=== PATIENT | female | born 1930 | race Caucasian/White ===

== ENCOUNTER → 2018-04-15 | Outpatient (CLI) | payer OTHER ==
[~2018-04-15] MED LIST: ACET-1311 PO; ASPI-232 PO; CALC500C70 PO; CLB/200 PO; FSMD/70 PO; ISOS30TA35 PO; LOSA100T65 PO; METO25TA56 PO; MULT-506 PO; NTRGSL/4 UT; OCCUVITE PO; OMEG10007 PO; PRED1SUS3 OPR; PREMARIN VAG PV; PRLSR20 PO; SACC250C11 PO; SIMV20TA2 PO; TMPOPS15 OPR
[2018-04-15 10:22] LABS: HEMATOCRIT 32.7 % (37-47); HEMOGLOBIN 11.1 g/dL (12.0-16.0); MEAN CELL VOLUME 91.6 fL (80-100); MEAN CORPUSCULAR HEMOGLOBIN 31.1 pg (25-34); MEAN CORPUSCULAR HGB CONC 33.9 g/dl (32-36); MEAN PLATELET VOLUME 9.4 fL (7.4-10.4); PLATELET COUNT 243 K/uL (130-400); RED CELL DISTRIBUTION WIDTH CV 11.7 % (11.5-14.5); WHITE BLOOD COUNT 5.44 K/uL (4.8-10.8)
[2018-04-15 10:31] LABS: ALBUMIN 3.6 gm/dl (3.4-5.0); BLOOD UREA NITROGEN 18 mg/dl (7-18); CALCIUM 8.6 mg/dl (8.5-10.1); CARBON DIOXIDE 27 mmol/L (21-32); CREATININE 0.93 mg/dl (0.60-1.20); GLUCOSE 91 mg/dl (70-99); POTASSIUM 4.8 mmol/L (3.5-5.1); SODIUM 131 mmol/L (136-145)
[2018-04-15 10:35] LABS: PTT PATIENT 22.1 SECONDS (21.0-31.0)
--- NOTE | 2018-04-15 10:41 | DIAGNOSTIC IMAGING REPORT ---
CHEST 2 VIEWS ROUTINE HISTORY: 87 years-old Female PAT preoperative exam. No acute chest complaints COMPARISON: None available TECHNIQUE: PA and lateral views of the chest FINDINGS: Cardiomediastinal and hilar silhouettes are within normal limits. Calcification of the aorta. Linear subsegmental right perihilar opacity extending to the lateral pleural surface suggests atelectasis/scarring. There is no pneumothorax, pleural effusion or overt pulmonary edema. Degenerative changes of the shoulders and spine. IMPRESSION: No acute process. The above report was generated using voice recognition software. It may contain grammatical, syntax or spelling errors. Electronically signed by: Compa Braun M.D. 04/15/2018 10:40 AM Dictated Date/Time: 04/15/2018 10:38 AM
[2018-04-15 10:46] LABS: HEMOGLOBIN A1C 5.9 % (4.5-5.6)
[2018-04-15 11:23] LABS: BASO % 0.6 %; BASO ABS # 0.03 K/uL (0-0.2); EOS % 2.8 %; EOS ABS # 0.15 K/uL (0-0.5); IG# 0.04 K/uL (0.00-0.02); LYMPH % 51.7 %; LYMPH ABS # 2.81 K/uL (1.2-3.4); MONO % 8.6 %; MONO ABS # 0.47 K/uL (0.11-0.59); NEUT % 35.6 %; NEUT ABS # 1.94 K/uL (1.4-6.5)
== END | disposition home or self-care (01) ==
LOC: C.CPL 09:28
DX: Z01.810 Encounter for preprocedural cardiovascular examination (principal); Z01.811 Encounter for preprocedural respiratory examination; Z01.812 Encounter for preprocedural laboratory examination; R00.1 Bradycardia, unspecified

== ENCOUNTER 2018-04-26 06:11 | Inpatient (IN) | payer OTHER ==
[2018-04-12 10:51] VITALS: BMI 29.0
--- NOTE | 2018-04-15 10:16 | PAT Medication Instructions ---
Service Date Apr 15, 2018. Current Home Medication List Acetaminophen (Tylenol), 650 MG PO Q4 PRN for Pain Alendronate/Cholecalciferol (Fosamax+D 70MG/2800 Iu), 1 TABLET PO WK Aspirin (Aspir-81), 1 TAB PO QAM Calcium/Vitamin D (Os-Juan 500 Plus D), 1 TAB PO QAM Celecoxib (CeleBREX), 200 MG PO QAM Fish Oil (Upperco-3), 1 CAP PO BID Isosorbide Mononitrate Ext Rel (Imdur Ext Rel), 1 TAB PO QAM Losartan Potassium (Cozaar), 100 MG PO QAM Metoprolol Tartrate (Lopressor) (Lopressor), 25 MG PO BID Multivitamin (Multivitamin), 1 TAB PO QAM Nitroglycerin (Nitrostat), 0.4 MG UT PRN PRN for PRN Omeprazole (Prilosec), 20 MG PO QAM Prednisolone Acetate (Ophth) (Pred Forte 1% Oph), 1 DROPS OPR UD Saccharomyces Boulardii (Probiotic), 1 CAP PO QAM Simvastatin (Zocor), 20 MG PO QAM Timolol Maleate (Timolol 0.5% Oph Soln 15 Ml), 1 DROP OPR UD [Occuvite], 1 TAB PO QAM [Premarin Vag], 1 DOSE PV Q2WK Medication Instructions For Your Scheduled Surgery -Continue as directed: Alendronate/Cholecalciferol (Fosamax+D 70MG/2800 Iu), 1 TABLET PO WK Nitroglycerin (Nitrostat), 0.4 MG UT PRN PRN for PRN - Hold the following medications STARTING TODAY: Fish Oil (Upperco-3), 1 CAP PO BID [Occuvite], 1 TAB PO QAM - Hold the following medications 24 hours prior to surgery: [Premarin Vag], 1 DOSE PV Q2WK - Hold the following medications the morning of surgery: Calcium/Vitamin D (Os-Juan 500 Plus D), 1 TAB PO QAM Celecoxib (CeleBREX), 200 MG PO QAM Losartan Potassium (Cozaar), 100 MG PO QAM Multivitamin (Multivitamin), 1 TAB PO QAM Saccharomyces Boulardii (Probiotic), 1 CAP PO QAM - Take the following medications the morning of surgery with a sip of water: Acetaminophen (Tylenol), 650 MG PO Q4 PRN for Pain (if needed, may be taken up to four hours before surgery) Aspirin (Aspir-81), 1 TAB PO QAM Isosorbide Mononitrate Ext Rel (Imdur Ext Rel), 1 TAB PO QAM Metoprolol Tartrate (Lopressor) (Lopressor), 25 MG PO BID Omeprazole (Prilosec), 20 MG PO QAM Prednisolone Acetate (Ophth) (Pred Forte 1% Oph), 1 DROPS OPR UD (bring with you to the hospital) Simvastatin (Zocor), 20 MG PO QAM Timolol Maleate (Timolol 0.5% Oph Soln 15 Ml), 1 DROP OPR UD (bring with you to the hospital) - Take the following medications as scheduled the afternoon/night before surgery : Acetaminophen (Tylenol), 650 MG PO Q4 PRN for Pain (if needed) Metoprolol Tartrate (Lopressor) (Lopressor), 25 MG PO BID Prednisolone Acetate (Ophth) (Pred Forte 1% Oph), 1 DROPS OPR UD If you have any questions please call us at [phone] or [phone] or [phone]
[~2018-04-26] VITALS: Ht 154.9 cm; Wt 72.0 kg
[2018-04-26] VITALS (11 sets, daily range): BP systolic 114–164; BP diastolic 63–79; PULSE 57–74; TEMP 36.4–36.6; O2SAT 98–100; Ht 154.9 cm; Wt 72.0 kg
[~2018-04-26 06:11] MED LIST changes: +ACETAMINOPHEN 500 MG TAB PO SCH; +CEFAZOLIN 1000MG IV PUSH 7.5 ML IV SCH; +CeleBREX 200 MG CAP PO SCH; +DEXAMETHASONE 4 MG TAB PO SCH; +FAMOTIDINE 20 MG TAB PO SCH; +GABAPENTIN 300 MG CAP PO SCH; +LACTATED RINGER'S 1000ML 1,000 ML IV SCH; +LACTATED RINGER'S 1000ML 500 ML IV SCH; +METOCLOPRAMIDE HCL 10 MG TAB PO SCH; +ROPIVACAINE 5MG/ML 30 ML 150 MG, BUPIVACAINE 0.5% MPF INJ 30 ML, EpINEphrine HCL INJ 0.... INFIL SCH; +TRANEXAMIC ACID INJ 1,000 MG x 1 Bag Intra-Op IV SCH
[2018-04-26] MEDS: TRANEXAMIC ACID INJ 1,000 MG x 2 Bags IV SCH ×4 (06:30→08:33)
[2018-04-26] MEDS ORDERED: ROPIVACAINE 0.5% 5 MG/ML 30 ML VIAL ONE (07:25)
[2018-04-26] MEDS ORDERED: BUPIVACAINE 0.5 % 5 MG/1 ML PF 10ML VIAL ONE (07:25)
[2018-04-26] MEDS ORDERED: MIDAZOLAM HCL 1 MG/ML 2ML VIAL ONE (07:42)
[2018-04-26] MEDS ORDERED: FENTANYL CITRATE INJ 50 MCG/1 ML 2 ML VIAL ONE (07:43)
--- NOTE | 2018-04-26 07:44 | History & Physical Bridge Note ---
H&P Re-Evaluation Bridge Note: I have examined the patient, reviewed the History & Physical and in the interval since the performance of the History & Physical I have noted the following changes of clinical significance: No changes noted
--- NOTE | 2018-04-26 07:50 | History and Physical ---
History & Physical Date Apr 26, 2018. Chief Complaint LEFT KNEE PAIN History of Present Illness The patient is a 87 year old female with complaints of left knee pain for several years. She rates her pain an 8/10. Patient has pain with her daily activities, limited standing and walking tolerance that is worse with weightbearing. She has failed injectins, HEP, and OTC meds. She is now scheduled for elective TKA with Dr. Holder. Past Medical/Surgical History HTN Denies CAD, DM, DVT Additional History Hepatic Disease: No Endocrine Disorder: No Kidney Disease: No Hypertension: Yes Heart Disease: No Bleeding Tendencies: No Infectious Diseases: No Other: Hysterectomy Cholecystectomy Cataract extraction Allergies Coded Allergies: Chlorthalidone (Verified Allergy, Unknown, RASH, 04/26/18) Clindamycin (Verified Allergy, Unknown, PT UNSURE OF RXN, OCCURED SEVERAL YEARS AGO, 04/26/18) Penicillins (Verified Allergy, Unknown, PT UNSURE, OCCURED A CHILD, 04/26) Codeine (Verified Adverse Reaction, Unknown, nausea, 04/26/18) Home Medications Scheduled Alendronate/Cholecalciferol (Fosamax+D 70MG/2800 Iu), 1 TABLET PO WK Aspirin (Aspir-81), 1 TAB PO QAM Calcium/Vitamin D (Os-Juan 500 Plus D), 1 TAB PO QAM Celecoxib (CeleBREX), 200 MG PO QAM Fish Oil ([place]-3), 1 CAP PO BID Isosorbide Mononitrate Ext Rel (Imdur Ext Rel), 1 TAB PO QAM Losartan Potassium (Cozaar), 100 MG PO QAM Metoprolol Tartrate (Lopressor) (Lopressor), 25 MG PO BID Multivitamin (Multivitamin), 1 TAB PO QAM Omeprazole (Prilosec), 20 MG PO QAM Prednisolone Acetate (Ophth) (Pred Forte 1% Oph), 1 DROPS OPR UD Saccharomyces Boulardii (Probiotic), 1 CAP PO QAM Simvastatin (Zocor), 20 MG PO QAM Timolol Maleate (Timolol 0.5% Oph Soln 15 Ml), 1 DROP OPR UD [Occuvite], 1 TAB PO QAM [Premarin Vag], 1 DOSE PV Q2WK Scheduled PRN Acetaminophen (Tylenol), 650 MG PO Q4 PRN for Pain Nitroglycerin (Nitrostat), 0.4 MG UT PRN PRN for PRN Physical Examination Skin: warm/dry, no rash Eyes: normal inspection, EOMI, sclerae normal ENT: normal ENT inspection, pharynx normal Head: normocephalic, atraumatic Neck: supple, no adenopathy, trachea midline Respiratory/Chest: lungs clear, normal breath sounds, no respiratory distress Cardiovascular: regular rate, rhythm, no edema, no murmur Abdomen / GI: normal bowel sounds, non tender Back: normal inspection Extremities: + pertinent finding (Varus deformity, no ecchymossis, redness. ROM 3-110. No medial laxity. ) Neurologic/Psych: no motor/sensory deficits, alert, normal reflexes, oriented x 3 Diagnosis DJD LEFT KNEE Plan of Treatment Patient will proceed with left TKA as scheduled with Dr. Holder. Patient is planning on home PT upon discharge. Will plan on ASA for DVT proph.
[2018-04-26] MEDS ORDERED: ORTHO JOINT ANESTHETIC ONE (08:00)
[2018-04-26] MEDS ORDERED: POVIDONE-IODINE OP SOLN 30 ML BTL ONE (08:00)
[2018-04-26] MEDS ORDERED: BACITRACIN 50000 UNIT VIAL ONE (08:00)
[2018-04-26 08:07] LABS: CALCIUM 8.6 mg/dl (8.5-10.1); CREATININE 0.93 mg/dl (0.60-1.20); POTASSIUM 4.7 mmol/L (3.5-5.1)
[2018-04-26] MEDS ORDERED: FENTANYL CITRATE INJ 50 MCG/1 ML 2 ML VIAL IV PRN (08:15)
[2018-04-26] MEDS ORDERED: ATROPINE SULFATE 0.1 MG/ML 5ML SYR IV PRN ×3 (08:15→12:45)
[2018-04-26] MEDS ORDERED: LABETALOL HCL IV 5 MG/ML 20ML IV PRN (08:15)
[2018-04-26] MEDS ORDERED: EpHEDrine SULFATE INJ 50 MG/ML AMP IV PRN ×3 (08:15→12:45)
[2018-04-26] MEDS ORDERED: ONDANSETRON INJ 2 MG/ML 2 ML VIAL IV PRN ×2 (08:15→10:30)
[2018-04-26] MEDS ORDERED: MEPERIDINE HCL 25 MG/ML CARP IV PRN (08:15)
[2018-04-26] MEDS ORDERED: HYDROmorphone INJ 1 MG/ML SYR IV PRN (08:15)
[2018-04-26] MEDS ORDERED: PHENYLEPHRINE HCL INJ 10 MG/ML VIAL ONE (08:56)
[2018-04-26] MEDS ORDERED: DEXAMETHASONE SOD INJ 4 MG/ML VIAL ONE (08:56)
[2018-04-26] MEDS ORDERED: PROPOFOL IV EMULSION 10 MG/ML 20 ML VIAL ONE (09:04)
[2018-04-26] MEDS ORDERED: ONDANSETRON INJ 2 MG/ML 2 ML VIAL ONE (09:41)
--- NOTE | 2018-04-26 09:55 | [facility] Post Operative Brief Note ---
Immediate Operative Summary Operative Date Apr 26, 2018. Pre-Operative Diagnosis left knee degenerative joint disease Post-Operative Diagnosis left knee degenerative joint disease Procedure(s) Performed Left total knee arthroplasty Surgeon Dr. Holder Production Support Consultant Surgeon(s) Luna Sandoval PA-C Estimated Blood Loss 10cc Findings Consistent with Post-Op Diagnosis Specimens A. left knee bone and tissue Anesthesia Type MAC Spinal Regional Disposition Accompanied Pt To Recover: no Disposition: Recovery Room / PACU Overlapping Procedure I was present for: the critical portions of procedure. I was immediately available: during the entire case
[2018-04-26] MEDS ORDERED: ZOLPIDEM TARTRATE 5 MG TAB PO PRN (10:30)
[2018-04-26] MEDS ORDERED: MoRPHine SULFATE 2 MG/ML CARP IV PRN (10:30)
[2018-04-26] MEDS ORDERED: SOD PHOSPHATE/SOD BIPHOSPHATE ENEMA 132 ML BTL PR PRN (10:30)
[2018-04-26] MEDS ORDERED: MAGNESIUM HYDROXIDE SUSP 30 ML UDC PO PRN (10:30)
[2018-04-26] MEDS ORDERED: TRAMADOL HCL 50 MG TAB PO PRN (10:30)
[2018-04-26] MEDS ORDERED: CEFAZOLIN IV 2,000 MG in DEXTROSE 5% 50ML 50 ML IV SCH (10:30)
[2018-04-26] MEDS ORDERED: BISACODYL 10 MG SUPP PR PRN (10:30)
[2018-04-26] MEDS ORDERED: ALUMINUM/MAGNESIUM/SIMETH (MAALOX MAX) 30 ML UDC PO PRN (10:30)
[2018-04-26] MEDS ORDERED: OXYCODONE HCL IR 5 MG TAB (IMMEDIATE RELEASE) PO PRN (10:30)
--- NOTE | 2018-04-26 10:55 | Anesthesiology Progress Note ---
Anesthesia Post Op Note Date & Time Apr 26, 2018 at 10:54 Vital Signs Pain Intensity: 0 Vital Signs Past 12 Hours Date Time Temp Pulse Resp B/P (MAP) Pulse Ox O2 Delivery O2 Flow Rate FiO2 04/26/18 10:50 36.2 60 16 94/62 100 Nasal Cannula 2 04/26/18 10:40 60 16 109/63 100 Nasal Cannula 2 04/26/18 10:30 58 16 107/55 100 Nasal Cannula 2 04/26/18 10:21 36 62 16 103/59 97 Nasal Cannula 2 04/26/18 06:45 36.6 64 20 160/73 99 Room Air Notes Mental Status: alert / awake / arousable, participated in evaluation Pt Amnestic to Procedure: Yes Nausea / Vomiting: adequately controlled Pain: adequately controlled Airway Patency, RR, SpO2: stable & adequate BP & HR: stable & adequate Hydration State: stable & adequate Anesthetic Complications: no major complications apparent
--- NOTE | 2018-04-26 11:05 | DIAGNOSTIC IMAGING REPORT ---
LEFT KNEE 2 VIEWS History: Left total knee arthroplasty. Degenerative arthritis. Postop. FINDINGS: The patient is status post a left total knee arthroplasty. The hardware is intact. No fracture or dislocation. Surgical drains are in place. IMPRESSION: Left total knee arthroplasty. No evidence for hardware complication. Electronically signed by: Miguel Tobin M.D. 04/26/2018 11:03 AM Dictated Date/Time: 04/26/2018 11:03 AM
[2018-04-26] MEDS: SODIUM CHLORIDE 0.9% 1000ML 1,000 ML IV SCH ×2 (12:37→23:30)
[2018-04-26] MEDS ORDERED: NITROGLYCERIN 0.4 MG SL PER TAB CHARGE UT PRN (13:15)
[2018-04-26] MEDS: ACETAMINOPHEN 500 MG TAB PO SCH ×2 (13:59→21:16)
[2018-04-26] MEDS: CEFAZOLIN IV 2,000 MG in SYRINGE 0 ML IV SCH ×2 (15:53→23:30)
[2018-04-26] MEDS: METOPROLOL TARTRATE 25 MG TAB PO SCH (20:36)
[2018-04-26] MEDS: CeleBREX 200 MG CAP PO SCH (20:36)
[2018-04-26] MEDS: ASPIRIN 81 MG ECTAB PO SCH (20:36)
[2018-04-26] MEDS: SENNA 8.6 MG TAB PO SCH (21:15)
[2018-04-26] MEDS: TIMOLOL MALEATE 0.25% OP SOLN 5 ML BTL OPR SCH (21:15)
[2018-04-27] VITALS (8 sets, daily range): BP systolic 146–166; BP diastolic 71–80; PULSE 56–71; TEMP 36.4–36.5; O2SAT 91–98
[2018-04-27] MEDS: ACETAMINOPHEN 500 MG TAB PO SCH ×3 (05:40→22:01)
[2018-04-27 06:33] LABS: HEMATOCRIT 30.1 % (37-47); HEMOGLOBIN 10.3 g/dL (12.0-16.0); MEAN CORPUSCULAR HEMOGLOBIN 31.5 pg (25-34); MEAN CORPUSCULAR HGB CONC 34.2 g/dl (32-36); MEAN PLATELET VOLUME 9.7 fL (7.4-10.4); PLATELET COUNT 215 K/uL (130-400); RED CELL DISTRIBUTION WIDTH CV 11.9 % (11.5-14.5); RED CELL DISTRIBUTION WIDTH SD 39.9 fL (36.4-46.3); WHITE BLOOD COUNT 11.32 K/uL (4.8-10.8)
[2018-04-27 07:04] LABS: CALCIUM 7.9 mg/dl (8.5-10.1); CREATININE 1.19 mg/dl (0.60-1.20); POTASSIUM 4.7 mmol/L (3.5-5.1)
[2018-04-27] MEDS ORDERED: DEXAMETHASONE 4 MG TAB PO SCH (07:30)
--- NOTE | 2018-04-27 08:07 | Orthopedic Progress Note ---
Orthopedic Progress Note Date of Service Apr 27, 2018. Subjective Post OP Day: 1 Reports: feeling well, Denies: chest pain, SOB, nausea / vomiting, light headedness, calf pain Objective calves soft nontender, N/V intact, capillary refill less than 2 sec., dressing C /D/I, A&O x3, toes mobile, hemovac drainage Date Time Temp Pulse Resp B/P (MAP) Pulse Ox O2 Delivery O2 Flow Rate FiO2 04/27/18 06:56 36.5 71 18 151/80 (103) 98 Room Air 04/27/18 03:40 36.5 70 16 156/75 (102) 97 Room Air 04/26/18 23:39 Room Air 04/26/18 23:10 36.5 58 16 158/73 (101) 98 Room Air 04/26/18 20:38 67 148/73 (98) 04/26/18 19:12 71 148/78 (101) 04/26/18 19:05 36.4 74 18 164/79 (107) 98 Room Air 04/26/18 15:48 100 Room Air 04/26/18 14:09 61 18 134/64 (87) 100 2.0 04/26/18 13:11 61 18 127/71 (89) 100 2.0 04/26/18 12:15 57 16 116/67 (83) 04/26/18 11:51 57 16 114/63 (80) 100 Nasal Cannula 2.0 04/26/18 11:37 100 Nasal Cannula 2.0 04/26/18 11:15 36.4 67 16 114/66 (82) 100 Nasal Cannula 2.0 04/26/18 11:15 100 Nasal Cannula 2.0 04/26/18 11:00 36.2 61 16 114/58 100 Nasal Cannula 2 04/26/18 10:50 36.2 60 16 94/62 100 Nasal Cannula 2 04/26/18 10:40 60 16 109/63 100 Nasal Cannula 2 04/26/18 10:30 58 16 107/55 100 Nasal Cannula 2 04/26/18 10:21 36 62 16 103/59 97 Nasal Cannula 2 Laboratory Results 24 Hours: Test 04/27/18 05:50 Hematocrit 30.1 % Hemoglobin 10.3 g/dL Assessment & Plan Assessment: POD#1 SP LEFT TKA Plan: PT/OT DVT PROPH- ASA 81MG BID PAIN MANAGEMENT- [place], TYLENOL DC PLANNING- DC HOME TOMORROW WITH ADVANTAGE. DC DRESSING/DRAIN IN AM.
--- NOTE | 2018-04-27 08:09 | Discharge Instructions ---
Discharge Instructions Date of Service Apr 27, 2018. Admission Reason for Admission: Left Knee Osteoarthritis Discharge Discharge Diagnosis / Problem: SP LEFT TKA Discharge Goals Goal(s): Decrease discomfort, Improve function, Increase independence Activity Recommendations Activity Limitations: per Instructions/Follow-up section . Instructions / Follow-Up Instructions / Follow-Up ACTIVITY RECOMMENDATIONS: SELF CARE INSTRUCTIONS AFTER TOTAL KNEE REPLACEMENT A. You may need to continue a physical therapy program after discharge from the hospital. There are several options available to you. Your doctor will assist you in selecting the best one for you. 1. An out-patient facility 2 to 3 times a week for therapy or home therapy. 2. Continue working on all exercises taught to you in the hospital. Your goals should be to increase bending of your knee to 90 degrees and beyond and to fully straighten your knee. B. You may progress at your own pace from walking with a walker or crutches to a cane; then to no assistive devices. C. Make walking a part of your daily routine. Be up as much as comfortable with rest periods throughout the day. Rest with leg elevation is very important. Use the ice wrap frequently for the first 3-4 weeks. D. There are no restrictions on activities. You may ride in a car, shop, participate in log check scaler and all social activities. E. Wear the long elastic stockings (MALOU hose) 20 hours a day for 2 weeks after surgery. They can be removed several times a day for laundering and for a bath. F. You may shower, no tub baths until cleared by your doctor. SPECIAL CARE INSTRUCTIONS: VERY IMPORTANT TO READ AND REVIEW A. There are a few signs you need to watch for after you are home. Call [facility] if you notice any of the followin. Increased severe knee pain. Some pain is expected especially when you exercise. 2. Increased swelling in your leg or knee; pain or swelling of the calf muscle in either lower leg. 3. Any fluid drainage from the incision. 4. Shortness of breath or chest pain. B. Please call [facility] at if you have any concerns or questions about your operation or recovery. The doctor or his nurse will return your call promptly. C. You must take antibiotics before dental work, bladder, bowel or other surgery. Your doctor will provide you with a permanent care to carry describing this precaution. IMPORTANT: * REMEMBER TO TAKE ASPIRIN, 81 MG, TWICE DAILY FOR 4 WEEKS UNLESS OTHERWISE DIRECTED. THIS IS YOUR BLOOD THINNER. * HIGH RISK PATIENTS MAY BE PRESCRIBED A STRONGER BLOOD THINNER. THIS WILL BE PROVIDED AT DISCHARGE. * CALL IF INCREASED PAIN, REDNESS, DRAINAGE OR FEVER GREATER THAT 101. * WEAR MALOU HOSE 20 HOURS PER DAY FOR 2 WEEKS. * Zip Skin Closure You have a Zipline Closure System. As noted below, this keeps your incision closed. Change the dressing daily. Keep the wound covered with a dressing as it has the potential to snag on your clothing. The Zipline will remain on for a total of 2 weeks. Do not remove it! You will be given instructions by nursing staff at the time of discharge to care for your Zip Closure System. This devices uses plastic straps to keep your incision closed and protected throughout your recovery. If you have any questions please refer to these instructions first. FOLLOW UP VISIT: If appointment is not already scheduled: Please call [facility] to make a follow-up appointment for 2 weeks after your surgery at . Current Hospital Diet Patient's current hospital diet: Regular Diet Discharge Diet Recommended Diet: Regular Diet Procedures Procedures Performed: Left total knee arthroplasty Pending Studies Studies pending at discharge: no Laboratory Results Hemoglobin A1c Test 04/15/18 09:46 Range/Units Estimated Average Glucose 123 mg/dl Hemoglobin A1c 5.9 H 4.5-5.6 % Medical Emergencies . Who to Call and When: Medical Emergencies: If at any time you feel your situation is an emergency, please call 911 immediately. . Non-Emergent Contact Non-Emergency issues call your: Surgeon . "Provider Documentation" section prepared by Luna Sandoval. .
[2018-04-27] MEDS: SODIUM CHLORIDE 0.9% 1000ML 1,000 ML IV SCH (08:58)
[2018-04-27] MEDS: TIMOLOL MALEATE 0.25% OP SOLN 5 ML BTL OPR SCH ×2 (08:59→21:04)
[2018-04-27] MEDS: PrednisoLONE ACET 1% OP SUSP 5 ML BTL OPR SCH (08:59)
[2018-04-27] MEDS: CALCIUM 600MG + VIT D 400 IU TAB PO SCH (09:00)
[2018-04-27] MEDS: CeleBREX 200 MG CAP PO SCH ×2 (09:00→21:05)
[2018-04-27] MEDS: LOSARTAN POTASSIUM 50 MG TAB PO SCH (09:01)
[2018-04-27] MEDS: ASPIRIN 81 MG ECTAB PO SCH ×2 (09:01→21:05)
[2018-04-27] MEDS: ISOSORBIDE MONONITRATE 30 MG TABCR PO SCH (09:02)
[2018-04-27] MEDS: METOPROLOL TARTRATE 25 MG TAB PO SCH ×2 (09:03→21:04)
[2018-04-27] MEDS: SIMVASTATIN 20 MG TAB PO SCH (09:03)
[2018-04-27] MEDS: MULTIVITAMIN TAB PO SCH (10:05)
[2018-04-27] MEDS: SENNA 8.6 MG TAB PO SCH (21:05)
[2018-04-28] MEDS: ACETAMINOPHEN 500 MG TAB PO SCH (05:36)
[2018-04-28 05:53] VITALS: BP 172/81; PULSE 73; TEMP 36.5; O2SAT 96
[2018-04-28 06:22] VITALS: BP 154/82; PULSE 65
[2018-04-28] MEDS: PrednisoLONE ACET 1% OP SUSP 5 ML BTL OPR SCH (07:48)
[2018-04-28] MEDS: TIMOLOL MALEATE 0.25% OP SOLN 5 ML BTL OPR SCH (07:48)
[2018-04-28] MEDS: CeleBREX 200 MG CAP PO SCH (07:49)
[2018-04-28] MEDS: ASPIRIN 81 MG ECTAB PO SCH (07:49)
[2018-04-28] MEDS: LOSARTAN POTASSIUM 50 MG TAB PO SCH (07:50)
[2018-04-28] MEDS: ISOSORBIDE MONONITRATE 30 MG TABCR PO SCH (07:50)
[2018-04-28] MEDS: CALCIUM 600MG + VIT D 400 IU TAB PO SCH (07:50)
[2018-04-28] MEDS: SIMVASTATIN 20 MG TAB PO SCH (07:51)
[2018-04-28] MEDS: METOPROLOL TARTRATE 25 MG TAB PO SCH (07:51)
[2018-04-28] MEDS: MULTIVITAMIN TAB PO SCH (07:51)
--- NOTE | 2018-04-28 08:01 | Orthopedic Progress Note ---
Orthopedic Progress Note Date of Service Apr 28, 2018. Subjective Post OP Day: 2 Reports: feeling well, Denies: complaints Objective calves soft nontender, N/V intact, incision C/D/I, A&O x3, toes mobile Date Time Temp Pulse Resp B/P (MAP) Pulse Ox O2 Delivery O2 Flow Rate FiO2 04/28/18 07:34 Room Air 04/28/18 06:22 65 154/82 (106) 04/28/18 05:53 36.5 73 18 172/81 (111) 96 Room Air 04/28/18 00:20 Room Air 04/27/18 22:55 36.5 66 18 159/73 (101) 91 Room Air 04/27/18 21:00 68 158/76 (103) 04/27/18 16:00 97 Room Air 04/27/18 15:24 36.4 56 18 166/76 (106) 97 Room Air 04/27/18 11:26 36.4 65 18 156/78 (104) 98 Room Air 04/27/18 08:20 Room Air Assessment & Plan Assessment: POD#2 SP LEFT TKA Plan: PT/OT DVT PROPH- ASA 81MG BID PAIN MANAGEMENT- [place], TYLENOL DC PLANNING- DC HOME TODAY WITH ADVANTAGE. Discharge Planning Discharge Planning: home with home health
[2018-04-28] MEDS ORDERED: SENN-61 PO (08:04)
[2018-04-28] MEDS ORDERED: ASPI-232 PO (08:04)
[2018-04-28] MEDS ORDERED: RXC5 PO (08:04)
[2018-04-28] MEDS ORDERED: CLB/200 PO (08:04)
[2018-04-28] MEDS ORDERED: ACET-24 PO (08:04)
[2018-04-28 08:49] VITALS: BP 154/82; PULSE 65; TEMP 36.5; O2SAT 96
--- NOTE | 2018-05-07 11:31 | OPERATIVE REPORT ---
DATE OF OPERATION: 04/26/2018 PREOPERATIVE DIAGNOSIS: Osteoarthritis, left knee. POSTOPERATIVE DIAGNOSIS: Osteoarthritis, left knee. PROCEDURE: Left total knee arthroplasty. SURGEON: Dr. Holder. MAIL EXAMINER: KIANNA Ortega ANESTHESIA: Spinal. COMPLICATIONS: None. IMPLANTS USED: Femoral size 4, tibia size 3, tibial poly 13, patella size 36. DISPOSITION: Recovery room stable. OPERATION AND FINDINGS: Following induction of spinal anesthesia, the patient's left leg was prepped and draped in the usual sterile manner. Limb was exsanguinated with an Esmarch bandage and tourniquet was inflated to 350 mmHg. A longitudinal incision was made anteriorly. Subcutaneous tissue was sharply dissected. Electrocautery was used for hemostasis. Prepatellar bursa was incised and median parapatellar incision was performed. Patella was everted and the knee was flexed. Fat pad was removed to aid in visualization and the anterior and posterior cruciate ligaments were removed. The medial face of the tibia was cleared of soft tissue first with a Bovie and a Nielsen elevator. This tissue was retracted posteriorly using a blunt Hohmann. A Ontiveros retractor was used to expose the synovium above on the anterior aspect of the femur and this was removed down to bone. The PSI guide was placed on the distal femur and two pins were placed anteriorly and kept in position and two additional pins were placed distally and removed. The distal femoral cutting block was placed in position and the distal femoral cut was used in the +0 setting. Next, the cutting block was removed and the femoral 4 block was placed in the distal end of the femur. Care was taken to ensure appropriate external rotation and feeler gauge was used to ensure no notching would occur. The femoral block was centered on the distal femur and in the medial and lateral direction and was fixed using two bone screws. The gold pins were then removed. The oscillating saw was used to create the bone cuts and the distal femoral cutting block was removed and the reciprocating saw was used to further trim the femoral cuts as well as a deep in the area for the trochlear groove. Next, posterior condyle remnants were removed. Following this, a meniscal clamp and knife were utilized to remove the anterior portion of both medial and lateral meniscus. The proximal tibia PSI guide was placed into position and the proximal tibial cutting guide was screwed into position. The extra medullary alignment guide was utilized to ensure appropriate alignment. The proximal tibia was cut and the proximal tibial cutting block was removed and this bone fragment was removed. The appropriate guide was used to perform the notch cut on the distal femur and a lamina what job titles mean and a cochlear knife were utilized to finish both medial and lateral meniscectomies to remove any remnants of the posterior or anterior cruciate ligaments. Following this, the distal femoral component was impacted into position and blunt Lakeisha was used to sublux the tibia anteriorly. The proximal tibia was sized and a 3 tibial tray was chosen as the size to be used. This was put into position and appropriate external rotation and a double check with extramedullary alignment guide was performed. The canal for the tibial stem was prepared first with a 17 mm drill and then the punch and a mallet and the trial tibial poly was placed. A 13 was chosen the size to be used. It was brought to extension and the patella was prepared with the patellar reamer. A 36 component was chosen the size to be used. The trial component was placed and knee was taken through a full range of motion and there was found to be no lateral subluxation of the tibia. No lateral release was required. The trials were all removed. The final components were obtained and assembled. Cement was mixed. The knee was thoroughly irrigated and the ortho mix was injected about the knee joint. The final components were cemented into position. After thoroughly suctioning and drying the bone ends, all excess cement was removed. The knee was held in extension while the cement hardened. The wound was irrigated and closed over a Hemovac drain. #1 Vicryl was used to close the extensor mechanism. Subcutaneous tissues closed using 0 Dexon. Skin was closed with tacho. Sterile dressing of Adaptic, 4 x 4's, sterile Webril, and Albin was applied. The patient tolerated the procedure well. Due to the complex nature of the procedure, the entire surgery was performed with the operational assistance of KIANNA Ortega. The lab assistant, under direct supervision, was involved in the actual performance of all aspects of the surgical procedure including hemostasis, tissue retraction and incision, instrument management, patient positioning, and wound closure. I attest to the content of the Intraoperative Record and any orders documented therein. Any exception s are noted below.
--- NOTE | 2018-05-07 16:22 | DISCHARGE SUMMARY ---
DISCHARGE DIAGNOSIS: Degenerative joint disease, left knee. SECONDARY DIAGNOSIS: None. CONSULTS: None. COMPLICATIONS: None. PROCEDURE: The patient underwent a left total knee arthroplasty by Dr. Holder on 04/26/2018. BRIEF HISTORY: Please see previously dictated history and physical. HOSPITAL SUMMARY: The patient was admitted on the above day for the above procedure. Procedure went without complications. Postop day 1, the patient was feeling well without complaints. She denied chest pain or shortness of breath. Vital signs were stable. She was afebrile. Dressing was clean, dry and intact. She was neurovascularly intact. Calves were soft and nontender. Hemoglobin was 10.3. The patient began physical therapy per protocol. Postop day 2, the patient was doing well without complaints. She denied chest pain or shortness of breath. Vital signs were stable. She was afebrile. Dressing was clean, dry and intact. She was neurovascularly intact. Calves were soft and nontender. She continued to progress with physical therapy and was discharged to home later that day. For further review, please see the chart. LAB, X-RAY DATA AND DISCHARGE INSTRUCTIONS: As per chart.
== END 2018-04-28 10:49 | disposition home health service (06) | DRG 470 ==
LOC: C.ACU 06:11 → C.3E 07:40 → ENRESERV 11:01
PROC: 0SRD0J9 Replacement of Left Knee Joint with Synthetic Substitute, Cemented, Open Approach (ICD-10-PCS; principal; 2018-04-26 08:45)
DX: M17.12 Unilateral primary osteoarthritis, left knee (principal); I10 Essential (primary) hypertension; Z79.899 Other long term (current) drug therapy; Z79.82 Long term (current) use of aspirin; Z88.8 Allergy status to other drugs, medicaments and biological substances; Z88.1 Allergy status to other antibiotic agents; Z88.0 Allergy status to penicillin; Z88.5 Allergy status to narcotic agent

== ENCOUNTER 2018-12-02 04:59 | Inpatient (IN) ==
--- NOTE | 2018-11-17 10:41 | PAT Medication Instructions ---
Medication Instructions Date of Service November 17, 2018 Home Medications Ocuvite Adult 50 Plus 1 dose PO QAM Probiotic 1 cap PO QAM alendronate [Fosamax] 1 tab PO WK aspirin 81 mg PO QAM calcium carbonate-vitamin D3 1 dose PO BID celecoxib [Celebrex] 200 mg PO BID PRN conjugated estrogens [Premarin] 1 dose TOPICAL UD isosorbide mononitrate 30 mg PO QAM losartan [Cozaar] 100 mg PO QAM metoprolol tartrate 25 mg PO BID multivitamin 1 tab PO QAM omega 4-[id number]-[id number]-fish oil [Fish Oil] omeprazole 20 mg PO QAM prednisolone acetate 1 drp OPR QAM simvastatin 20 mg PO QAM timolol 1 drp OPR BID Continue as directed alendronate [Fosamax] 1 tab PO WK ASK your surgeon for instructions celecoxib [Celebrex] 200 mg PO BID PRN STOP taking 2 weeks before surgery omega 3-rch-axp-fish oil [Fish Oil] DO NOT take the morning of surgery Ocuvite Adult 50 Plus 1 dose PO QAM Probiotic 1 cap PO QAM calcium carbonate-vitamin D3 1 dose PO BID conjugated estrogens [Premarin] 1 dose TOPICAL UD losartan [Cozaar] 100 mg PO QAM multivitamin 1 tab PO QAM Take morning of surgery With a small sip of water, OTHERWISE NOTHING TO EAT OR DRINK AFTER MIDNIGHT: aspirin 81 mg PO QAM isosorbide mononitrate 30 mg PO QAM metoprolol tartrate 25 mg PO BID omeprazole 20 mg PO QAM prednisolone acetate 1 drp OPR QAM (bring with you to the hospital) simvastatin 20 mg PO QAM timolol 1 drp OPR BID (bring with you to the hospital) Take evening before surgery calcium carbonate-vitamin D3 1 dose PO BID metoprolol tartrate 25 mg PO BID Other Notes If you have any questions please call us at [phone] or [phone] or [phone] or [phone]
--- NOTE | 2018-11-17 14:46 | Anesthesiology Consultation ---
Date of Service November 17, 2018 Assessment & Plan (1) Encounter for pre-operative examination: Cardiac clearance 11/25/2018: Symptoms are stable. She can walk 2 flights of steps without anginal equivalent. She tolerated surgery in April...I would put her as intermediate risk for this type of surgery with her morbidities. This would predict around 3-4% chance of adverse cardiac event around the time of surgery. This would not be substantially mitigated by any further testing. 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 Chart Review Chart Review: Acceptable Risk for Surgery and Patient seen in Pre Admission Testing Teaching & Discussion Instructed NPO after midnight before surgery, except medications with 15 cc of water. Medication instructions provided according to the PAT guidelines. History Surgery Operation Date: 12/02/18 08:20 Proposed Procedures p Right Total Knee Arthroplasty - Ifeanyi Holder MD Height/Weight Height: 5 ft 2 in Weight: 72.1 kg Allergies Allergy/AdvReac Type Severity Reaction Status Date / Time chlorthalidone Allergy Unknown RASH Verified 11/11/18 16:08 Penicillins Allergy Unknown PT UNSURE, Verified 11/11/18 16:08 OCCURED A CHILD codeine AdvReac Unknown nausea Verified 11/11/18 16:08 Medications Home Medications Medication Instructions Recorded Confirmed Last Taken Ocuvite Adult 50 Plus 1 dose PO QAM 11/11/18 11/11/18 Unknown Probiotic 1 cap PO QAM 11/11/18 11/11/18 Unknown alendronate [Fosamax] 1 tab PO WK 11/11/18 11/11/18 Unknown aspirin 81 mg PO QAM 11/11/18 11/11/18 Unknown calcium carbonate-vitamin D3 1 dose PO BID 11/11/18 11/11/18 Unknown [Calcium 600 + D(3)] celecoxib [Celebrex] 200 mg PO BID PRN 11/11/18 11/11/18 Unknown conjugated estrogens [Premarin] 1 dose TOPICAL UD 11/11/18 11/11/18 Unknown isosorbide mononitrate 30 mg PO QAM 11/11/18 11/11/18 Unknown losartan [Cozaar] 100 mg PO QAM 11/11/18 11/11/18 Unknown metoprolol tartrate 25 mg PO BID 11/11/18 11/11/18 Unknown multivitamin 1 tab PO QAM 11/11/18 11/11/18 Unknown omega 4-cii-xui-fish oil [Fish Oil] 1 cap PO QAM 11/11/18 11/11/18 Unknown omeprazole 20 mg PO QAM 11/11/18 11/11/18 Unknown prednisolone acetate 1 drp OPR QAM 11/11/18 11/11/18 Unknown simvastatin 20 mg PO QAM 11/11/18 11/11/18 Unknown timolol 1 drp OPR BID 11/11/18 11/11/18 Unknown Past Medical History Medical History CAD (coronary artery disease) "angiographically borderline disease" on cath in 2014 per cardio. GERD (gastroesophageal reflux disease) Hearing deficit BL JULES History of skin cancer Hyperlipidemia Hypertension Macular degeneration Osteoarthritis Osteoporosis Sciatica Systolic heart failure EF 40% per 04/20/18 echo Past Surgical History Surgical History History of Mohs micrographic surgery for skin cancer History of appendectomy History of cardiac cath 03/2015 - [facility] - FAILED STRESS TEST - NO STENTS/ANGIOPLASTY - FOLLOWS W/ DR. MCRAE History of cataract surgery History of cholecystectomy History of colonoscopy History of lumpectomy of left breast History of total abdominal hysterectomy and bilateral salpingo-oophorectomy History of total knee replacement LEFT Past Anesthesia History No Hx of Anesthesia Complications and No Family Hx of Anesthesia Complications L TKA 04/2018; SAB + PNB without issues. History of PONV No Motion Sickness Screening History of Motion Sickness: No Social History Smoking Status: Former smoker Do You Dip or Chew Tobacco: No Smoking End Date: QUIT 1982 Hx Alcohol Use: No Hx Substance Use: No substance use type: does not use Exercise / Class Metabolic Activity II 4-5 Yardwork/Stairs/Walk up hill (No CP or SOB with stairs generally; if carrying loads of laundry up and down stairs some SOB, no CP.) Review of Systems Pt denies any recent chest pain, shortness of breath, palpitations, cough, fever or URI. Physical Exam Vital Signs BP: 146/76 (pt follows with cardio and PCP for HTN) P: 69bpm SPO2: 99% RA T: 97.5 F R: 16 ENMT Mouth: + dental restorations (two crowns); no chipped teeth and no loose teeth Thyromental Distance: > or= 3.5 Finger Breadths (3.5) Mallampati Class: II Neck normal visual inspection; neck extension not limited Respiratory normal respiratory effort Auscultation: lungs clear to auscultation bilaterally Cardiovascular Rate/Rhythm: regular rate and regular rhythm Heart Sounds: no murmur Vessels: no carotid bruit Extremities: no edema Testing Electrocardiogram Date: 08/18/18 Findings: + NSR @ (66) Intra-atrial conduction delay. Left axis deviation. Chest X-Ray Date: 04/15/18 Findings: + NAD Echocardiogram Date: 04/20/18 EF: 40% Left ventricular size is normal with normal wall thickness. Moderate left ventricular segmental systolic dysfunction. Hypokinetic wall motion visualized within the apical, inferoseptal, anterolateral, and anterior wall segments. The mid anteroseptal wall segment appears akinetic. The remaining wall segments show normal contractility. Normal left atrial size. Normal right atrial size with normal right ventricular size and normal function. Findings consistent with diastolic dysfunction. Color flow Doppler reveals mild mitral, moderate aortic, mild tricuspid, mild pulmonic insufficiencies. Right ventricular systolic pressure is 30 mmHg. The pericardium and aorta appears normal. Normal respiratory variation of the IVC. Stress Test Date: 04/20/18 (EKG only) Patient exercised on Channing protocol and reached peak heart rate of 108 which is equal to 82% maximum predicted heart rate for age. Baseline EKG normal sinus rhythm. No clinical angina. Stress test nondiagnostic for ischemia. Patient was not able to continue as patient complained that her knees were hurting her and made it difficult to continue. Cardiac Catheterization Date: 04/03/15 Mild to moderate two-vessel coronary disease. Normal left ventricular systolic function. Normal LVEDP. Given present coronary anatomy patient should be managed medically with aggressive risk factor modification. PCI of LAD can be considered for drug refractory symptoms. Laboratory Results 11/17/18 15:00 11/17/18 15:00 Blood Type B Positive 11/17/18 15:00 Antibody Screen NEGATIVE 11/17/18 15:00 PT 10.5 Seconds (9.0-12.0) 11/17/18 15:00 INR 1.0 (0.9-1.1) 11/17/18 15:00 APTT 22.5 Seconds (21.0-31.0) 11/17/18 15:00 Hemoglobin A1c 5.9 % (4.5-5.6) H 11/17/18 15:00 Urine Color Yellow 11/17/18 15:00 Urine Appearance Clear (Clear) 11/17/18 15:00 Urine pH 7.0 (4.5-7.5) 11/17/18 15:00 Ur Specific [place] 1.009 (1.000-1.030) 11/17/18 15:00 Urine Protein Negative (Negative) 11/17/18 15:00 Urine Glucose (UA) Negative (Negative) 11/17/18 15:00 Urine Ketones Negative (Negative) 11/17/18 15:00 Urine Nitrite Negative (Negative) 11/17/18 15:00 Ur Leukocyte Esterase Negative (Negative) 11/17/18 15:00 11/17/18 15:00 Urine Culture - Final Urine,Clean Catch More than three types of organisms present, all moderate counts mixed probable skin ade. No further identifications or sensitivities to follow.
[2018-11-17 15:29] LABS: Appearance Urine Clear (Clear); Bilirubin Urine Negative (Negative); Blood Urine Negative (Negative); Color Urine Yellow; Glucose Urine UA Negative (Negative); Hematocrit (blood only) 32.5 % (37-47); Hemoglobin 10.9 g/dL (12.0-16.0); Ketones Urine Negative (Negative); Leukocyte Esterase Urine Negative (Negative); Mean Corpuscular Hgb Conc 33.5 g/dL (32-36); Mean Corpuscular Volume 92.1 fL (80-100); Mean Platelet Volume 9.2 fL (7.4-10.4); Nitrite Urine Negative (Negative); Platelet Count 245 K/uL (130-400); Protein Urine Negative (Negative); RDW Standard Deviation 40.8 fL (36.4-46.3); Red Blood Count 3.53 M/uL (4.2-5.4); Specific Gravity Urine 1.009 (1.000-1.030); Urobilinogen Urine Negative (Negative); White Blood Count 5.98 K/uL (4.8-10.8)
[2018-11-17 15:37] LABS: Albumin Level 3.7 gm/dl (3.4-5.0); BUN Creatinine Ratio 20.2 (10-20); Calcium 8.4 mg/dl (8.5-10.1); Creatinine Clr Calc Pharmacy 43.9 ml/min; Est GFR (African American) 72.4; Est GFR (Non-African American) 62.5; Potassium 4.2 mmol/L (3.5-5.1)
[2018-11-17 15:38] LABS: Partial Thromboplastin Ratio 0.8; Partial Thromboplastin Time 22.5 Seconds (21.0-31.0); Prothrombin Time 10.5 Seconds (9.0-12.0)
[2018-11-17 16:19] LABS: ALC (manual) 3.22 K/uL (1.2-3.4); Eosinophils # (manual) 0.11 K/uL (0-0.5); Eosinophils % (manual) 1.9 %; Lymphocytes # (manual) 2.37 K/uL (1.2-3.4); Lymphocytes % (manual) 39.6 %; Metamyelocytes # (manual) 0.05 K/uL (0-0); Metamyelocytes % (manual) 0.9 %; Monocytes # (manual) 0.34 K/uL (0.11-0.59); Monocytes % (manual) 5.7 %; Neutrophils % (manual) 37.7 %; RBC Morphology Unremarkable; Reactive Lymphocytes # (manual) 0.85 K/uL
[2018-11-18 07:40] LABS: Estimated Average Glucose 123 mg/dl; Hemoglobin A1C 5.9 % (4.5-5.6)
--- NOTE | 2018-12-01 08:59 | History and Physical Report ---
DATE OF ADMISSION: 12/02/2018 CHIEF COMPLAINT: Right knee pain. HISTORY OF PRESENT ILLNESS: The patient is an 88-year-old female approximately 6 months status post successful left total knee arthroplasty. She also has known osteoarthritis about her right knee. She takes Celebrex daily. She has pain and disability with activities of daily living including prolonged weightbearing and standing activities. She has difficulty with any kneeling, bending, or squatting activities. Due to ongoing pain and disability, she now desires to proceed with right total knee arthroplasty. PAST MEDICAL HISTORY: Hypertension, osteoarthritis, obesity. PAST SURGICAL HISTORY: Hysterectomy, cholecystectomy, left knee replacement as above. MEDICATIONS: Isosorbide mononitrate ER 30 mg daily, Nitrostat 0.4 mg sublingual p.r.n. chest pain, metoprolol tartrate 25 mg twice daily, Celebrex 200 mg daily p.r.n., Premarin q. 2 weeks, losartan potassium 100 mg daily, omeprazole 20 mg daily, Fosamax 70 mg weekly, aspirin 81 mg daily, simvastatin 20 mg daily, multivitamin daily, fish oil 1000 mg twice daily, calcium plus D twice daily, Ocuvite daily, probiotic daily. ALLERGIES: CEFUROXIME, CHLORTHALIDONE, AND PENICILLIN. SOCIAL HISTORY AND REVIEW OF SYSTEMS: Noncontributory. PHYSICAL EXAMINATION: GENERAL: Well-nourished, well-developed elderly female who appears her stated age. HEENT: Normocephalic, atraumatic, extraocular movements intact, oropharynx pink and moist. NECK: Supple without adenopathy. LUNGS: Clear to auscultation bilaterally. HEART: Regular rate and rhythm. ABDOMEN: Soft, nontender, nondistended. EXTREMITIES: The upper extremities are within normal limits. The right knee has a neutral alignment. Range of motion is from 0-125 degrees. She has mild crepitus with range of motion. X-RAYS: X-rays were reviewed. She has severe osteoarthritis about the medial compartment with complete loss of the joint space. There are medial joint line osteophytes. She also has severe osteoarthritis about the patellofemoral joint with complete loss of the joint space and large osteophytes. ASSESSMENT: Right knee degenerative joint disease. PLAN: Risks versus benefits were discussed, consent was obtained. The patient's primary care physician is Dr. Dangelo from [place]. We will proceed with right total knee arthroplasty as indicated.
[2018-12-02] MEDS ORDERED: FAMOTIDINE 20 MG TAB PO SCH (06:00)
[2018-12-02] MEDS ORDERED: CLINDAMYCIN 600 MG/54 ML BAG IV SCH (06:00)
[2018-12-02] MEDS ORDERED: dexAMETHasone 4 MG TAB PO SCH (06:00)
[2018-12-02] MEDS ORDERED: GABAPENTIN 300 MG PO SCH (06:00)
[2018-12-02] MEDS ORDERED: ACETAMINOPHEN 500 MG TAB PO SCH (06:00)
[2018-12-02] MEDS ORDERED: LR 500ML BOLUS, THEN 15ML/HR IV SCH (06:00)
[2018-12-02] MEDS ORDERED: TRANEXAMIC ACID 1,000 MG **IV Pre-op IV SCH (06:00)
[2018-12-02] MEDS ORDERED: ROPIVACAINE 0.5% HCL/PF 150 MG, BUPIVACAINE 0.5% MPF 30 ML, EPINEPHrine 30MG/30ML (OR U... INFIL SCH (06:00)
[2018-12-02] MEDS ORDERED: CeleBREX 200 MG CAP PO SCH (06:00)
[2018-12-02] MEDS ORDERED: fentaNYL citrate 100 MCG/2 ML VIAL ONE (06:21)
[2018-12-02] MEDS ORDERED: MIDAZOLAM HCL 1 MG/ML 2ML VIAL ONE (06:21)
[2018-12-02] MEDS ORDERED: PROPOFOL IV EMULSION 10 MG/ML 20 ML VIAL IV ONE ×3 (06:22)
[2018-12-02] MEDS ORDERED: ROPIVACAINE 0.5% 5 MG/ML 30 ML VIAL ONE (06:24)
[2018-12-02] MEDS ORDERED: BUPIVACAINE 0.5 % 5 MG/1 ML PF 10ML VIAL ONE (06:24)
[2018-12-02] MEDS ORDERED: TRANEXAMIC ACID 1,000 MG **IV Intra-op IV SCH (06:30)
[2018-12-02] MEDS ORDERED: POVIDONE-IODINE OP SOLN 30 ML BTL ONE (06:33)
[2018-12-02] MEDS ORDERED: BACITRACIN INJ 50,000 UNIT VIAL ONE (06:33)
[2018-12-02] MEDS ORDERED: ORTHO JOINT ANESTHETIC ONE (06:33)
[2018-12-02] MEDS ORDERED: HYDROmorphone INJ 2 MG/ML SYR/VIAL IV PRN (06:45)
[2018-12-02] MEDS ORDERED: ONDANSETRON INJ 2 MG/ML 2 ML VIAL IV PRN ×2 (06:45→09:42)
[2018-12-02] MEDS ORDERED: ATROPINE SULFATE 0.1 MG/ML 10ML SYR IV PRN (06:45)
[2018-12-02] MEDS ORDERED: fentaNYL citrate 100 MCG/2 ML VIAL IV PRN (06:45)
[2018-12-02] MEDS ORDERED: ePHEDrine sulfate 50 MG/ML AMP IV PRN (06:45)
[2018-12-02] MEDS ORDERED: PHENYLEPHRINE 100MCG/ML 5ML SYR IV PRN (06:45)
--- NOTE | 2018-12-02 07:13 | History & Physical Bridge Note ---
Date of Service December 02, 2018 History & Physical Bridge Note I have examined the patient, reviewed the History & Physical and in the interval since the performance of the History & Physical I have noted the following changes of clinical significance: no changes noted
[2018-12-02] MEDS ORDERED: PHENYLEPHRINE HCL 10 MG/ML VIAL ONE (07:30)
[2018-12-02] MEDS ORDERED: ePHEDrine sulfate 50 MG/ML AMP ONE (07:30)
--- NOTE | 2018-12-02 08:11 | Operative Report ---
Post Operative Report Pre & Post Diagnosis DJD knee Operation Date: 12/02/18 07:00 <No data on this case meets the specified criteria> Procedure Operation Date: 12/02/18 07:00 <No data on this case meets the specified criteria> Right total knee Surgeon Ifeanyi Holder MD Investor Relations Director Pardeep Estimated Blood Loss 10 Findings Consistent with Post-Op Diagnosis Specimens Bone fragments Complications none Disposition Accompanied Patient To Recovery: No Disposition: Recovery Room Indications Knee pain Description of Procedure Patient's right leg was prepped and draped in usual sterile manner. The limb was exsanguinated with an Esmarch bandage and the tourniquet was inflated to 300 mmHg. Longitudinal incision was made medium parapatellar incision was made fat pad was removed and the medial face the tibia was cleared of soft tissue the proximal tibia was osteotomized at the appropriate level using the oscillating saw this bone fragment was removed. Next attention was turned to the distal femur where a drill was used to get access to the femoral canal. The flexible guidewire was placed and the distal femur cuts were made. The menisci were removed and the trial femur was placed size #4. The tibia was presented into the wound using a blunt Hohmann and a size 3 tibial component was chosen. The tibia was prepared the trial tibia was placed with an 11 mm poly-. Patella was reamed and a trial patella was placed size 36 and it tracked well. Trials were removed joint mix was injected through pulsatile irrigation was used cement was mixed and the final components were cemented in position. All excess cement was removed and after hardening of the cement Betadine soap was utilized Hemovac drain was placed fascia was closed using #1 Vicryl subcutaneous tissue was closed using 0 Dexon and the skin was closed with is applied. Sterile dressing of Adaptic 4 x 4's and sterile water was applied. Mr. Nielsen was utilized to all portions of case including prepping draping surgical assistance wound closure and dressing I attest to the content of the Intraoperative Record and any orders documented therein. Any exceptions are noted be
--- NOTE | 2018-12-02 09:18 | XRay Report ---
RIGHT KNEE 2 VIEWS History: Right total knee arthroplasty. Degenerative arthritis. Postop. FINDINGS: The patient is status post a right total knee arthroplasty. The hardware is intact. No frac ture or dislocation. Surgical drains are in place. IMPRESSION: Right total knee arthroplasty. No evidence for hardware complication. Electronically signed by: Miguel Tobin M.D. 12/02/2018 9:17 AM
--- NOTE | 2018-12-02 09:24 | Anesthesiology Progress Note ---
Date of Service December 02, 2018 Anesthesia Post Procedure Vital Signs Vital Signs: Temp Pulse Pulse Resp BP Pulse Ox 12/02/18 09:20 63 16 134/62 99 12/02/18 09:10 63 12 139/64 98 12/02/18 09:00 65 12 132/74 100 12/02/18 08:50 64 14 119/65 100 12/02/18 08:43 36.6 C 68 16 127/62 100 12/02/18 05:51 36.6 C 62 20 170/79 H 97 Pain Intensity Right Knee: Pain Intensity: 5 Notes Mental Status: alert / awake / arousable Patient Amnestic to Procedure: Yes Nausea / Vomiting: adequately controlled Pain: adequately controlled Airway Patency, RR, SpO2: stable & adequate BP & HR: stable & adequate Neuraxial Anesthesia: was administered and sensory block is resolving Anesthetic Complications: no major complications apparent Notes: Awake, doing well, no complaints, VSS
[2018-12-02] MEDS ORDERED: ALUMINUM/MAGNESIUM SUSP 30 ML UDC PO PRN (09:42)
[2018-12-02] MEDS ORDERED: METOCLOPRAMIDE HCL INJ 5 MG/ML 2 ML VIAL IV PRN (09:42)
[2018-12-02] MEDS ORDERED: METOPROLOL TARTRATE 25 MG TAB PO SCH (09:42)
[2018-12-02] MEDS ORDERED: MULTIVITAMIN TAB PO SCH (09:42)
[2018-12-02] MEDS ORDERED: HYDROmorphone INJ 0.5 MG/0.5 ML SYR IV PRN (09:42)
[2018-12-02] MEDS ORDERED: MAGNESIUM HYDROXIDE SUSP 30 ML UDC PO PRN (09:42)
[2018-12-02] MEDS ORDERED: NALOXONE HCL 0.4 MG/1 ML VIAL/CARP IV PRN (09:42)
[2018-12-02] MEDS ORDERED: BISACODYL 10 MG SUPP PR PRN (10:00)
[2018-12-02] MEDS: SODIUM CHLORIDE 0.9% 1000ML 1,000 ML IV SCH ×2 (10:21→20:54)
[2018-12-02] MEDS: LOSARTAN POTASSIUM 50 MG TAB PO SCH (10:22)
[2018-12-02] MEDS: DOCUSATE SODIUM 100 MG CAP PO SCH ×2 (10:22→20:54)
[2018-12-02] MEDS: ASPIRIN 81 MG ECTAB PO SCH ×2 (10:22→20:55)
[2018-12-02] MEDS: TIMOLOL MALEATE 0.25% OP SOLN 5 ML BTL OPR SCH ×2 (10:23→20:55)
[2018-12-02] MEDS: MULTIVITAMIN TAB PO SCH (10:23)
[2018-12-02] MEDS: ISOSORBIDE MONO EXTENDED REL 30 MG TABCR PO SCH (10:23)
[2018-12-02] MEDS: prednisoLONE acetate 1% OP SUSP 5 ML BTL OPR SCH (10:23)
[2018-12-02] MEDS: SIMVASTATIN 20 MG TAB PO SCH (10:24)
[2018-12-02] MEDS: KETOROLAC TROMETHAMINE 15 MG/ML VIAL IV SCH ×3 (10:25→22:02)
[2018-12-02] MEDS ORDERED: CARBOHYDRATES FOR HYPOGLYCEMIA PO PRN (10:46)
[2018-12-02] MEDS ORDERED: GLUCAGON FOR INJ 1 MG VIAL SQ PRN (10:46)
[2018-12-02] MEDS ORDERED: GLUCOSE 40% GEL 15 GM TUBE PO PRN (10:46)
[2018-12-02] MEDS ORDERED: DEXTROSE 50% 50 ML SYRINGE IV PRN (10:46)
[2018-12-02] MEDS ORDERED: GLUCOSE 10 TABS/TUBE PO PRN (10:46)
--- NOTE | 2018-12-02 10:51 | Consultation ---
Date of Consultation December 02, 2018 Assessment & Plan (1) History of total knee replacement: This patient is an 88-year-old female with a history of CAD, chronic combined systolic and diastolic CHF, HTN, CARMEN, HL, chronic anemia OA, obesity, osteoporosis, GERD, sarcoid, allergies, and prediabetes, who is here postoperatively from a right TKA performed on 12/02/18. -Postoperative orthopedic management as per orthopedic surgery/primary service -Pain control with IV Dilaudid as needed, Toradol as needed, oxycodone as needed, dexamethasone and gabapentin as well as Celebrex were all given preoperatively, and acetaminophen scheduled -Bowel regimen with bisacodyl HI as needed, docusate 100 mg p.o. twice daily DVT prophylaxis is with aspirin 81 mg p.o. twice daily -PT/OT evaluations -Plan is for home with home health upon discharge (2) Chronic combined systolic (congestive) and diastolic (congestive) heart failure: With most recent echocardiogram showing LVEF 40% which is decreased from her usual 55% Seen by cardiology preoperatively and she has no symptoms at all of acute CHF- scientific aide believes this may be a false reading -Monitor for volume overload-currently is euvolemic -Continue metoprolol tartrate 25 mill grams p.o. twice daily for now-consider switching to Toprol-XL if is indeed left ventricular dysfunction as per cardiology notes-we will not do that while she is here -Watch I's and O's, daily weights (3) CAD (coronary artery disease): With moderate nonobstructive mid LAD disease 60-70% stenosis on last cardiac catheterization 2014, no intervention performed Is medically managed -Follows with Dr. Mcrae of cardiology -Continue aspirin, statin, metoprolol, losartan, isosorbide -Watch for perioperative cardiovascular acute symptoms (4) Osteoporosis: Stable -Continue on Fosamax at home once weekly, calcium plus vitamin D (5) GERD (gastroesophageal reflux disease): Stable -Continue Protonix while here and then back to omeprazole upon discharge (6) Macular degeneration: Stable -Continue eyedrops from home with timolol and prednisolone, Ocuvite (7) Hypertension: Blood pressures are normal to mildly elevated in the immediate postoperative period, she did hold her losartan the morning of surgery -Continue losartan from home and watch renal function in the morning -Continue Toprol tartrate 25 mg p.o. twice daily -Follow blood pressures (8) Hyperlipidemia: Stable -Continue statin (9) Carotid artery stenosis: No documentation in outpatient records as to the degree of stenosis, however she has not had a history of CVA or carotid artery endarterectomy and she is not overall of the percentage -Is followed by cardiology and PCP as an outpatient -Continue aspirin, statin (10) Anemia: Patient with chronic anemia with hemoglobin 10.5, MCV is normocytic at 92. Patient reports she has been told she was anemic for many years. She is not aware of the cause of her anemia -Follow hemoglobin here especially with blood loss after surgery -Recommend outpatient workup for anemia if has not been done previously to include iron studies, B12, folate, TSH -Is a chronic issue-defer to PCP for follow-up (11) DVT prophylaxis: Aspirin 81 mg p.o. twice daily, SCDs and Disposition-remain on surgical postoperative floor, hospitalist service will follow along [facility] for home with home health upon discharge in the next 2-3 days History of Present Illness Reason for Consultation: Postoperative medical management Requesting Physician: Dr. Holder Attending Physician: Ifeanyi Holder MD History of Present Illness This patient is an 88-year-old female with a history of CAD, chronic combined systolic and diastolic CHF, HTN, CARMEN, HL, chronic anemia OA, obesity, osteoporosis, GERD, sarcoid, allergies, and prediabetes, who is here postoperatively from a right TKA performed on 12/02/18. She is doing very well in the immediate postoperative period. She denies chest pains or shortness of breath, denies nausea and has actually eaten breakfast. She denies any other problems at this time. She still a bit numb in the lower extremities. She denies abdominal pain or constipation, no diarrhea, no recent illnesses. Allergies Allergy/AdvReac Type Severity Reaction Status Date / Time chlorthalidone Allergy Unknown RASH Verified 12/02/18 05:45 Penicillins Allergy Unknown PT UNSURE, Verified 12/02/18 05:45 OCCURED A CHILD codeine AdvReac Unknown nausea Verified 12/02/18 05:45 Home Medications Home Medications Medication Instructions Recorded Confirmed Type Ocuvite Adult 50 Plus 1 dose PO QAM 11/11/18 12/02/18 History Probiotic 1 cap PO QAM 11/11/18 12/02/18 History alendronate [Fosamax] 1 tab PO WK 11/11/18 12/02/18 History aspirin 81 mg PO QAM 11/11/18 12/02/18 History calcium carbonate-vitamin D3 1 dose PO BID 11/11/18 12/02/18 History [Calcium 600 + D(3)] celecoxib [Celebrex] 200 mg PO BID PRN 11/11/18 12/02/18 History conjugated estrogens [Premarin] 1 dose TOPICAL UD 11/11/18 12/02/18 History isosorbide mononitrate 30 mg PO QAM 11/11/18 12/02/18 History losartan [Cozaar] 100 mg PO QAM 11/11/18 12/02/18 History metoprolol tartrate 25 mg PO BID 11/11/18 12/02/18 History multivitamin 1 tab PO QAM 11/11/18 12/02/18 History omega 4-fom-gze-fish oil [Fish Oil] 1 cap PO QAM 11/11/18 12/02/18 History omeprazole 20 mg PO QAM 11/11/18 12/02/18 History prednisolone acetate 1 drp OPR QAM 11/11/18 12/02/18 History simvastatin 20 mg PO QAM 11/11/18 12/02/18 History timolol 1 drp OPR BID 11/11/18 12/02/18 History Patient History Medical History Carotid artery stenosis Chronic combined systolic (congestive) and diastolic (congestive) heart failure Prediabetes CAD (coronary artery disease) "angiographically borderline disease" on cath in 2014 per cardio. GERD (gastroesophageal reflux disease) Hearing deficit BL JULES History of skin cancer Hyperlipidemia Hypertension Macular degeneration Osteoarthritis Osteoporosis Sciatica Systolic heart failure EF 40% per 04/20/18 echo Surgical History History of tonsillectomy History of Mohs micrographic surgery for skin cancer History of appendectomy History of cardiac cath 03/2015 - [facility] - FAILED STRESS TEST - NO STENTS/ANGIOPLASTY - FOLLOWS W/ DR. MCRAE History of cataract surgery History of cholecystectomy History of colonoscopy History of lumpectomy of left breast History of total abdominal hysterectomy and bilateral salpingo-oophorectomy History of total knee replacement LEFT Family History Other Family history non-contributory Social History Preferred Language: Upper Sorbian Communication Ability: Effective Resident Physician Required: No Beliefs That Will Affect Care: None marital status: marital status details: for 63 years Current Living Situation: Spouse Other Information That Helps Us Care for You: No Feels Safe at Home: Yes Safety Concerns: Feels Safe At This Time Smoking Status: Former smoker Hx Alcohol Use: No Hx Substance Use: No Review of Systems 14 point review of systems otherwise negative except as per HPI Physical Exam Vital Signs (Past 24 Hours): Last Vital Signs Temp 36.6 C 12/02/18 10:37 Pulse 69 12/02/18 10:37 Resp 16 12/02/18 10:37 BP 144/68 H 12/02/18 10:37 Pulse Ox 96 12/02/18 10:37 Constitutional: WD/WN, vitals as above Eyes: PERRL, conjunctivae normal, anicteric sclerae ENMT: external ear and nose normal, oropharynx normal Neck: trachea midline, no thyromegaly Respiratory: normal respiratory effort, lungs clear to auscultation Cardiovascular: RRR, no murmur, no edema Gastrointestinal (Abdomen): normal bowel sounds, soft, nontender, no hepatosplenomegaly Musculoskeletal: Extremities: + extremities abnormal to inspection (Right lower extremity with large Albin wrap in place with drain coming out with bloody drainage), no cyanosis and no clubbing Skin: no rashes, warm and dry Neurologic: moves all extremities (But with decreased movement throughout lower extremities) and awake Psychiatric: A+Ox3, euthymic affect Results & Data Laboratory Results Preoperative laboratory values reviewed and notable for sodium 133, hemoglobin 10.5 with MCV 92 (1) Osteoporosis Osteoporosis type: age-related Presence of current pathological fracture: without current pathological fracture Qualified Code(s): M81.0 - Age-related osteoporosis without current pathological fracture (2) CAD (coronary artery disease) Coronary Disease-Associated Artery/Lesion type: eek artery [place] vs. transplanted heart: eek heart Associated angina: without angina Qualified Code(s): I25.10 - Atherosclerotic heart disease of eek coronary artery without angina pectoris (3) Hyperlipidemia Hyperlipidemia type: unspecified Qualified Code(s): E78.5 - Hyperlipidemia, unspecified (4) History of total knee replacement Laterality: bilateral Qualified Code(s): Z96.653 - Presence of artificial knee joint, bilateral (5) GERD (gastroesophageal reflux disease) Esophagitis presence: esophagitis presence not specified Qualified Code(s): K21.9 - Gastro-esophageal reflux disease without esophagitis (6) Hypertension Hypertension type: essential hypertension Qualified Code(s): I10 - Essential (primary) hypertension
[2018-12-02] MEDS: INSULIN ASPART 100 UNITS/ML 3 ML PEN SC SCH ×3 (12:44→21:01)
[2018-12-02] MEDS: ACETAMINOPHEN 500 MG TAB PO SCH ×2 (13:36→21:59)
[2018-12-02] MEDS: CLINDAMYCIN 600 MG in DEXTROSE 5% 50 ML IV SCH ×2 (14:21→22:02)
[2018-12-02] MEDS: FERROUS GLUCONATE 324 MG TAB PO SCH (18:58)
[2018-12-02] MEDS: ASCORBIC ACID 500 MG TAB PO SCH (18:58)
[2018-12-02] MEDS: SENNA 8.6 MG TAB PO SCH (20:55)
[2018-12-02] MEDS: METOPROLOL TARTRATE 25 MG TAB PO SCH (20:57)
[2018-12-03] MEDS: KETOROLAC TROMETHAMINE 15 MG/ML VIAL IV SCH (03:46)
[2018-12-03] MEDS: ACETAMINOPHEN 500 MG TAB PO SCH ×3 (06:08→21:03)
[2018-12-03 06:17] LABS: Hematocrit (blood only) 25.6 % (37-47); Hemoglobin 8.9 g/dL (12.0-16.0); Mean Corpuscular Hgb Conc 34.8 g/dL (32-36); Mean Corpuscular Volume 90.8 fL (80-100); Mean Platelet Volume 8.7 fL (7.4-10.4); Platelet Count 199 K/uL (130-400); RDW Coefficient of Variation 11.6 % (11.5-14.5); RDW Standard Deviation 38.6 fL (36.4-46.3); Red Blood Count 2.82 M/uL (4.2-5.4); White Blood Count 9.45 K/uL (4.8-10.8)
[2018-12-03 06:53] LABS: BUN Creatinine Ratio 24.5 (10-20); Est GFR (African American) 50.6; Est GFR (Non-African American) 43.7; Potassium 4.7 mmol/L (3.5-5.1)
[2018-12-03] MEDS ORDERED: dexAMETHasone 10 MG in SYRINGE 0 ML IV SCH (08:00)
[2018-12-03] MEDS: ASPIRIN 81 MG ECTAB PO SCH ×2 (08:45→21:02)
[2018-12-03] MEDS: PANTOprazole 40 MG TAB PO SCH (08:46)
[2018-12-03] MEDS: LOSARTAN POTASSIUM 50 MG TAB PO SCH (08:46)
[2018-12-03] MEDS: ISOSORBIDE MONO EXTENDED REL 30 MG TABCR PO SCH (08:46)
[2018-12-03] MEDS: FERROUS GLUCONATE 324 MG TAB PO SCH ×2 (08:46→17:48)
[2018-12-03] MEDS: SIMVASTATIN 20 MG TAB PO SCH (08:46)
[2018-12-03] MEDS: MULTIVITAMIN TAB PO SCH (08:47)
[2018-12-03] MEDS: ASCORBIC ACID 500 MG TAB PO SCH ×2 (08:47→17:47)
[2018-12-03] MEDS: METOPROLOL TARTRATE 25 MG TAB PO SCH ×2 (08:47→21:01)
[2018-12-03] MEDS: TIMOLOL MALEATE 0.25% OP SOLN 5 ML BTL OPR SCH ×2 (08:48→21:03)
[2018-12-03] MEDS: prednisoLONE acetate 1% OP SUSP 5 ML BTL OPR SCH (08:48)
[2018-12-03] MEDS: DOCUSATE SODIUM 100 MG CAP PO SCH ×2 (08:49→21:00)
[2018-12-03] MEDS: INSULIN ASPART 100 UNITS/ML 3 ML PEN SC SCH ×4 (08:50→20:52)
--- NOTE | 2018-12-03 08:59 | Anesthesiology Progress Note ---
Date of Service December 03, 2018 Anesthesia Post Procedure Vital Signs Vital Signs: Temp Pulse Pulse Pulse Resp BP BP 12/03/18 07:17 36.7 C 73 16 148/63 H 12/03/18 02:50 36.7 C 76 16 157/74 H 12/02/18 23:15 152/78 H 12/02/18 23:08 36.5 C 71 16 174/76 H 12/02/18 20:54 74 146/73 H 12/02/18 19:49 36.5 C 78 18 150/75 H 12/02/18 15:23 36.5 C 75 18 173/72 H 12/02/18 12:27 36.4 C L 72 19 148/64 H 12/02/18 11:35 36.4 C L 69 16 135/75 12/02/18 10:37 36.6 C 69 16 144/68 H 12/02/18 10:01 36.5 C 65 100 H 138/69 12/02/18 09:35 36.6 C 65 16 144/73 H 12/02/18 09:20 36.4 C L 63 16 134/62 12/02/18 09:10 63 12 139/64 12/02/18 09:00 65 12 132/74 Pulse Ox 12/03/18 07:17 96 12/03/18 02:50 98 12/02/18 23:15 12/02/18 23:08 98 12/02/18 20:54 12/02/18 19:49 97 12/02/18 15:23 99 12/02/18 12:27 98 12/02/18 11:35 97 12/02/18 10:37 96 12/02/18 10:01 100 12/02/18 09:35 100 12/02/18 09:20 99 12/02/18 09:10 98 12/02/18 09:00 100 Pain Intensity Right Knee: Pain Intensity: 5 Notes Mental Status: alert / awake / arousable Nausea / Vomiting: adequately controlled Pain: adequately controlled Airway Patency, RR, SpO2: stable & adequate BP & HR: stable & adequate Hydration State: stable & adequate Neuraxial Anesthesia: sensory block resolved
--- NOTE | 2018-12-03 09:15 | Orthopedic Progress Note ---
Date of Service December 03, 2018 Assessment & Plan (1) Right knee DJD: PT/OT; WBAT DVT Prophylaxis with ASA,SCD's,MALOU's Pain management as written Planning for HH services upon DC Subjective POD 1 s/p Right TKA Sitting up in chair at bedside eating breakfast. No complaints. Pain controlled. Denies SOB,CP,LH Physical Exam Vital Signs (Past 24 Hours): Last Vital Signs Temp 36.7 C 12/03/18 07:17 Pulse 73 12/03/18 07:17 Resp 16 12/03/18 07:17 BP 148/63 H 12/03/18 07:17 Pulse Ox 96 12/03/18 07:17 Physical Exam: Dressings C/D/I. Calves soft,NT. NV intact. Toes mobile. Results & Data Laboratory Results 12/03/18 12/03/18 12/03/18 Range/Units 08:09 06:02 06:02 WBC 9.45 (4.8-10.8) K/uL RBC 2.82 L (4.2-5.4) M/uL Hgb 8.9 L (12.0-16.0) g/dL Hct 25.6 L (37-47) % MCV 90.8 (80-100) fL MCH 31.6 (25-34) pg MCHC 34.8 (32-36) g/dL RDW Std Deviation 38.6 (36.4-46.3) fL RDW Coeff of Cyn 11.6 (11.5-14.5) % Plt Count 199 (130-400) K/uL MPV 8.7 (7.4-10.4) fL Sodium 132 L (136-145) mmol/L Potassium 4.7 (3.5-5.1) mmol/L Chloride 101 (98-107) mmol/L Carbon Dioxide 24 (21-32) mmol/L Anion Gap 8.0 (3-11) BUN 28 H (7-18) mg/dl Creatinine 1.13 (0.6-1.2) mg/dl Est Cr Clr Drug Dosing 32.0 ml/min Est GFR ( Amer) 50.6 Est GFR (Non-Af Amer) 43.7 BUN/Creatinine Ratio 24.5 H (10-20) Glucose 108 H (70-99) mg/dl POC Glucose 99 (70-99) Calcium 8.0 L (8.5-10.1) mg/dl 12/02/18 12/02/18 12/02/18 Range/Units 20:37 17:04 11:59 WBC (4.8-10.8) K/uL RBC (4.2-5.4) M/uL Hgb (12.0-16.0) g/dL Hct (37-47) % MCV (80-100) fL MCH (25-34) pg MCHC (32-36) g/dL RDW Std Deviation (36.4-46.3) fL RDW Coeff of Cyn (11.5-14.5) % Plt Count (130-400) K/uL MPV (7.4-10.4) fL Sodium (136-145) mmol/L Potassium (3.5-5.1) mmol/L Chloride (98-107) mmol/L Carbon Dioxide (21-32) mmol/L Anion Gap (3-11) BUN (7-18) mg/dl Creatinine (0.6-1.2) mg/dl Est Cr Clr Drug Dosing ml/min Est GFR ( Amer) Est GFR (Non-Af Amer) BUN/Creatinine Ratio (10-20) Glucose (70-99) mg/dl POC Glucose 152 H 157 H 171 H (70-99) Calcium (8.5-10.1) mg/dl
[2018-12-03] MEDS: OXYCODONE HCL IR 5 MG TAB (IMMEDIATE RELEASE) PO PRN (20:58)
[2018-12-03] MEDS: SENNA 8.6 MG TAB PO SCH (21:02)
[2018-12-04 06:21] LABS: Basophils # (auto) 0.01 K/uL (0-0.2); Basophils % (auto) 0.1 %; Eosinophils # (auto) 0.01 K/uL (0-0.5); Eosinophils % (auto) 0.1 %; Hematocrit (blood only) 24.2 % (37-47); Hemoglobin 8.5 g/dL (12.0-16.0); Immature Granulocytes # (auto) 0.05 K/uL (0.00-0.02); Immature Granulocytes % (auto) 0.5 %; Lymphocytes # (auto) 3.13 K/uL (1.2-3.4); Lymphocytes % (auto) 34.3 %; Mean Corpuscular Hgb Conc 35.1 g/dL (32-36); Mean Platelet Volume 9.2 fL (7.4-10.4); Monocytes # (auto) 1.14 K/uL (0.11-0.59); Monocytes % (auto) 12.5 %; Neutrophils # (auto) 4.79 K/uL (1.4-6.5); Neutrophils % (auto) 52.5 %; Platelet Count 193 K/uL (130-400); RDW Coefficient of Variation 12.1 % (11.5-14.5); RDW Standard Deviation 39.6 fL (36.4-46.3); Red Blood Count 2.66 M/uL (4.2-5.4); White Blood Count 9.13 K/uL (4.8-10.8)
[2018-12-04] MEDS: ACETAMINOPHEN 500 MG TAB PO SCH ×2 (06:24→13:02)
[2018-12-04 06:48] LABS: RBC Morphology Unremarkable
--- NOTE | 2018-12-04 07:14 | Hospitalist Progress Note ---
Date of Service December 03, 2018 Assessment & Plan (1) History of total knee replacement: This patient is an 88-year-old female with a history of CAD, chronic combined systolic and diastolic CHF, HTN, CARMEN, HL, chronic anemia OA, obesity, osteoporosis, GERD, sarcoid, allergies, and prediabetes, who is here postoperatively from a right TKA performed on 12/02/18. -Postoperative orthopedic management as per orthopedic surgery/primary service -Pain control with IV Dilaudid as needed, Toradol as needed, oxycodone as needed, and acetaminophen scheduled -Bowel regimen with bisacodyl MI as needed, docusate 100 mg p.o. twice daily DVT prophylaxis is with aspirin 81 mg p.o. twice daily -PT/OT evaluations -Plan is for home with home health upon discharge (2) Chronic combined systolic (congestive) and diastolic (congestive) heart failure: With most recent echocardiogram showing LVEF 40% which is decreased from her usual 55% Seen by cardiology preoperatively and she has no symptoms at all of acute CHF- natural resource economist believes this may be a false reading -Monitor for volume overload-currently is euvolemic and asymptomatic -Continue metoprolol tartrate 25 mg p.o. twice daily for now-consider switching to Toprol-XL if is indeed left ventricular dysfunction as per cardiology notes- we will not do that while she is here -Watch I's and O's, daily weights (3) CAD (coronary artery disease): With moderate nonobstructive mid LAD disease 60-70% stenosis on last cardiac catheterization 2014, no intervention performed Is medically managed -Follows with Dr. Trujillo of cardiology -Continue aspirin, statin, metoprolol, losartan, isosorbide -Watch for perioperative cardiovascular acute symptoms (4) Osteoporosis: Stable -Continue on Fosamax at home once weekly, calcium plus vitamin D (5) GERD (gastroesophageal reflux disease): Stable -Continue Protonix while here and then back to omeprazole upon discharge (6) Macular degeneration: Stable -Continue eyedrops from home with timolol and prednisolone, Ocuvite (7) Hypertension: Blood pressures are normal to mildly elevated but acceptable -Continue losartan from home - renal function acceptable -Continue metoprolol tartrate 25 mg p.o. twice daily -Follow blood pressures (8) Hyperlipidemia: Stable -Continue statin (9) Carotid artery stenosis: No documentation in outpatient records as to the degree of stenosis, however she has not had a history of CVA or carotid artery endarterectomy and she is not overall of the percentage -Is followed by cardiology and PCP as an outpatient -Continue aspirin, statin (10) Anemia: Patient with acute blood loss anemia on chronic anemia with hemoglobin down to 8.9 from 10.5, MCV is normocytic at 92. Patient reports she has been told she was anemic for many years. She is not aware of the cause of her anemia hemodynamically stable -Recommend outpatient workup for anemia if has not been done previously to include iron studies, B12, folate, TSH -Is a chronic issue-defer to PCP for follow-up (11) DVT prophylaxis: Aspirin 81 mg p.o. twice daily, SCDs Disposition-remain on surgical postoperative floor Hospitalist service will sign off at this time as patient is medically stable, plan for dc to home tomorrow Subjective Feeling very well. No nausea or headache, no CP or SOB, no abd pain. SHe has some knee pain and stiffness after sitting in chair all day but improved with getting up and walking. Review of Systems All systems reviewed & are unremarkable except as noted in HPI & below Physical Exam Vital Signs (Past 24 Hours): Last Vital Signs Temp 36.6 C 12/04/18 06:39 Pulse 72 12/04/18 06:39 Resp 16 12/04/18 06:39 BP 163/53 H 12/04/18 06:39 Pulse Ox 99 12/04/18 06:39 Constitutional: WD/WN, vitals as above Eyes: PERRL, conjunctivae normal, anicteric sclerae ENMT: external ear and nose normal, oropharynx normal Neck: trachea midline, no thyromegaly Respiratory: normal respiratory effort, lungs clear to auscultation Cardiovascular: RRR, no murmur, no edema Gastrointestinal (Abdomen): normal bowel sounds, soft, nontender, no hepatosplenomegaly Musculoskeletal: Extremities: + extremities abnormal to inspection (Right lower extremity with large Albin wrap in place with drain coming out with bloody drainage), no cyanosis and no clubbing Skin: no rashes, warm and dry Neurologic: moves all extremities (But with decreased movement throughout lower extremities) and awake Psychiatric: A+Ox3, euthymic affect Results & Data Laboratory Results hgb 8.9 Na+ 132, conventional mortgage underwriter 1.13 (1) Osteoporosis Osteoporosis type: age-related Presence of current pathological fracture: without current pathological fracture Qualified Code(s): M81.0 - Age-related osteoporosis without current pathological fracture (2) CAD (coronary artery disease) Associated angina: without angina Coronary Disease-Associated Artery/Lesion type: [place] artery [place] vs. transplanted heart: [place] heart Qualified Code(s): I25.10 - Atherosclerotic heart disease of [place] coronary artery without angina pectoris (3) Hyperlipidemia Hyperlipidemia type: unspecified Qualified Code(s): E78.5 - Hyperlipidemia, unspecified (4) History of total knee replacement Laterality: bilateral Qualified Code(s): Z96.653 - Presence of artificial knee joint, bilateral (5) GERD (gastroesophageal reflux disease) Esophagitis presence: esophagitis presence not specified Qualified Code(s): K21.9 - Gastro-esophageal reflux disease without esophagitis (6) Hypertension Hypertension type: essential hypertension Qualified Code(s): I10 - Essential (primary) hypertension
[2018-12-04] MEDS: MULTIVITAMIN TAB PO SCH (07:55)
[2018-12-04] MEDS: LOSARTAN POTASSIUM 50 MG TAB PO SCH (07:55)
[2018-12-04] MEDS: ASCORBIC ACID 500 MG TAB PO SCH (07:55)
[2018-12-04] MEDS: ISOSORBIDE MONO EXTENDED REL 30 MG TABCR PO SCH (07:55)
[2018-12-04] MEDS: METOPROLOL TARTRATE 25 MG TAB PO SCH (07:55)
[2018-12-04] MEDS: SIMVASTATIN 20 MG TAB PO SCH (07:55)
[2018-12-04] MEDS: FERROUS GLUCONATE 324 MG TAB PO SCH (07:55)
[2018-12-04] MEDS: PANTOprazole 40 MG TAB PO SCH (07:55)
[2018-12-04] MEDS: ASPIRIN 81 MG ECTAB PO SCH (07:56)
[2018-12-04] MEDS: DOCUSATE SODIUM 100 MG CAP PO SCH (07:56)
[2018-12-04] MEDS: prednisoLONE acetate 1% OP SUSP 5 ML BTL OPR SCH (07:56)
[2018-12-04] MEDS: TIMOLOL MALEATE 0.25% OP SOLN 5 ML BTL OPR SCH (07:57)
[2018-12-04] MEDS: INSULIN ASPART 100 UNITS/ML 3 ML PEN SC SCH ×2 (08:00→13:05)
[2018-12-04] MEDS: OXYCODONE HCL IR 5 MG TAB (IMMEDIATE RELEASE) PO PRN ×2 (08:06→13:02)
--- NOTE | 2018-12-04 09:02 | Orthopedic Progress Note ---
Date of Service December 04, 2018 Assessment & Plan (1) Right knee DJD: PT/OT; WBAT DVT Prophylaxis with ASA,SCD's,MALOU's Pain management as written Planning for HH services upon DC today Subjective POD 2 s/p Right TKA No complaints. Pain controlled. Denies SOB,CP,LH. She is ready to be discharged. Resting comfortably in bed. Physical Exam Vital Signs (Past 24 Hours): Last Vital Signs Temp 36.6 C 12/04/18 06:39 Pulse 72 12/04/18 06:39 Resp 16 12/04/18 06:39 BP 163/53 H 12/04/18 06:39 Pulse Ox 99 12/04/18 06:39 Toes mobile, NVI. Calves soft, non tender. Dressing in place.
--- NOTE | 2018-12-09 00:35 | Discharge Summary ---
CHIEF COMPLAINT: Right knee pain. Please see complete history and physical examination. HOSPITAL COURSE: The patient underwent right total knee arthroplasty without complication. She tolerated the procedure well and was discharged to recovery room in stable condition. Her postoperative course was relatively uneventful. Her postoperative pain was reasonably well controlled with a combination of spinal anesthesia, adductor canal block, intraoperative joint injection, IV and oral pain medications. She was started on aspirin for DVT prophylaxis. She also utilized MALOU stockings and SCDs for additional prophylaxis. Her H and H was stable and did not require transfusion. A postoperative medical consult was asked for to assist in her postoperative medical management. Again, she did not have any significant postoperative medical issues. Her surgical drain and dressing were discontinued prior to discharge. New postop dressing was applied will remain in place for approximately 7 days postoperative. She tolerated postoperative physical therapy reasonably well, where she was ambulating and bending her knee appropriately. She was discharged home on postoperative day #2. She will continue her physical therapy at home. She will continue her aspirin for DVT prophylaxis and follow up in our office in approximately 10-14 days for her initial postop evaluation.
== END 2018-12-04 13:40 | disposition home health service (06) | DRG 470 ==
LOC: ASU 04:59 → 3E 08:53